=== PATIENT | female | born 1960 | race Asian ===

== ENCOUNTER 2017-04-13 14:01 | Outpatient (CLI) | payer OTHER | END 2017-04-13 15:35 | disposition home or self-care (01) | LOC: MAMMO 14:01 | DX: Z12.31 Encounter for screening mammogram for malignant neoplasm of breast (principal) | CPT/HCPCS: G0202-TC ==

== ENCOUNTER 2017-12-27 16:36 | Outpatient (CLI) | payer OTHER | END 2017-12-27 20:34 | disposition home or self-care (01) | LOC: RAD 16:36 | DX: R07.89 Other chest pain (principal) ==

== ENCOUNTER 2018-06-04 13:20 | Outpatient (CLI) | payer OTHER | END 2018-06-04 19:51 | disposition home or self-care (01) | LOC: MAMMO 13:20 | DX: Z12.31 Encounter for screening mammogram for malignant neoplasm of breast (principal) ==

== ENCOUNTER 2018-08-16 18:59 | Outpatient (CLI) | payer OTHER | END 2018-08-16 19:45 | disposition home or self-care (01) | LOC: RAD 18:59 | DX: M79.672 Pain in left foot (principal) ==

== ENCOUNTER 2018-12-04 08:22 | Emergency (ER) | payer OTHER ==
[~2018-12-04] VITALS: Ht 162.6 cm; Wt 77.1 kg
[2018-12-04 08:30] VITALS: TEMP 97.7
[2018-12-04] MEDS ORDERED: TEMA30CA18 PO (09:13)
[2018-12-04] MEDS ORDERED: CELEBREX200 MG PO (09:13)
[2018-12-04] MEDS ORDERED: BETAMETH DIP EX (09:17)
[2018-12-04] MEDS ORDERED: GABA300C2 PO (09:17)
[2018-12-04] MEDS ORDERED: PREDNISONE5 M1 PO (09:18)
[2018-12-04] MEDS ORDERED: TRAMADOL HYDROC50 MG PO (09:18)
[2018-12-04] MEDS ORDERED: CYCLOBENZAPRINE5 MG PO (09:19)
[2018-12-04] MEDS ORDERED: AMLODIPINE BESYLATE PO (09:22)
[2018-12-04] MEDS ORDERED: HYDR10TA47A PO (09:23)
[2018-12-04 09:48] LABS: POTASSIUM 3.7 mmol/L (3.6-5.2); SODIUM 140 mmol/L (136-145)
[2018-12-04 10:06] LABS: PLATELET COUNT 264 K/uL (152-353)
[2018-12-04 11:11] VITALS: BP 129/86
== END 2018-12-04 11:11 | disposition home or self-care (01) ==
LOC: ED 08:22
PROVIDERS: Family Medicine
DX: M51.16 Intervertebral disc disorders with radiculopathy, lumbar region (principal)
CPT/HCPCS: 36415; 80053; 81000; 85027; 96372; 99283; J1885

== ENCOUNTER 2019-03-11 16:25 | Outpatient (CLI) | payer OTHER ==
[~2019-03-11 16:25] MED LIST: AMLODIPINE BESYLATE PO; BETAMETH DIP EX; CELEBREX200 MG PO; CYCLOBENZAPRINE5 MG PO; GABA300C2 PO; HYDR10TA47A PO; PREDNISONE5 M1 PO; TEMA30CA18 PO; TRAMADOL HYDROC50 MG PO
[2019-03-11 17:10] LABS: PLATELET COUNT 359 K/uL (152-353)
[2019-03-11 17:13] LABS: POTASSIUM 3.8 mmol/L (3.6-5.2)
== END 2019-03-11 23:28 | disposition home or self-care (01) ==
LOC: RAD 16:25
PROVIDERS: Nurse Practitioner
DX: Z09 Encounter for follow-up examination after completed treatment for conditions other than malignant neoplasm (principal); I10 Essential (primary) hypertension
CPT/HCPCS: 36415; 80053; 85027; 85610

== ENCOUNTER 2019-03-29 14:46 | Emergency (ER) | payer OTHER ==
[~2019-03-29] VITALS: Ht 162.6 cm; Wt 77.1 kg
[2019-03-29 15:03] VITALS: BP 91/49; TEMP 98.4
== END 2019-03-29 16:51 | disposition home or self-care (01) ==
LOC: ED 14:46
DX: I95.89 Other hypotension (principal); Z98.890 Other specified postprocedural states
CPT/HCPCS: 99281

== ENCOUNTER 2019-08-01 14:01 | Outpatient (CLI) | payer OTHER | END 2019-08-01 19:59 | disposition home or self-care (01) | LOC: RAD 14:01 | DX: Z13.820 Encounter for screening for osteoporosis (principal); Z78.0 Asymptomatic menopausal state ==

== ENCOUNTER 2020-09-14 17:24 | Outpatient (CLI) | payer OTHER | END 2020-09-14 22:06 | disposition home or self-care (01) | LOC: RAD 17:24 | PROVIDERS: ATTEND Family Medicine | DX: R22.42 Localized swelling, mass and lump, left lower limb (principal) ==